=== PATIENT | female | born 1945 | race Caucasian/White ===

== ENCOUNTER 2023-05-27 06:08 | Inpatient (IN) ==
--- NOTE | 2023-04-29 13:00 | PAT Medication Instructions ---
Medication Instructions Date of Service April 29, 2023 Home Medications Ra Injection 1 dose IM UD amlodipine 5 mg tablet 5 mg PO QAM atorvastatin 10 mg tablet 10 mg PO QAM calcium carbonate 500 mg-vitamin D3 3.125 mcg (125 unit) tablet 1 tab PO BID lisinopril 40 mg tablet 40 mg PO QAM multivitamin 1 tab PO QAM ASK your prescriber and surgeon Ra Injection 1 dose IM UD DO NOT take the morning of surgery calcium carbonate 500 mg-vitamin D3 3.125 mcg (125 unit) tablet 1 tab PO BID lisinopril 40 mg tablet 40 mg PO QAM multivitamin 1 tab PO QAM Take morning of surgery With a small sip of water, OTHERWISE NOTHING TO EAT OR DRINK AFTER MIDNIGHT: amlodipine 5 mg tablet 5 mg PO QAM atorvastatin 10 mg tablet 10 mg PO QAM Other Notes If you have any questions please call us at [phone] or [phone] or [phone] or [phone]
--- NOTE | 2023-05-04 13:40 | Anesthesiology Consultation ---
Date of Service May 04, 2023 Assessment & Plan (1) Encounter for pre-operative examination: - awaiting surgeon ordered medical clearance, [facility]. Chart Review Chart Review: Pending: Refer to Additional Notes / Consult section and Patient seen in Pre Admission Testing Teaching & Discussion Pre-Anesthesia Teaching/Discussion Notes: Instructed NPO after midnight before surgery, except medications with 15 cc of water. Medication instructions provided according to the PAT guidelines. History Surgery Operation Date: 05/27/23 07:45 Proposed Procedures p L2-L5 Decompression and Fusion, Spinal Cord Monitoring - Sujit Mansfield DO Height/Weight Height: 5 ft 1 in Weight: 63.9 kg Allergies Allergy/AdvReac Type Severity Reaction Status Date / Time shellfish derived Allergy Severe Anaphylaxis Verified 04/29/23 11:51 aspirin Allergy Intermediate Hives Verified 04/29/23 11:51 Penicillins Allergy Intermediate Hives Verified 04/29/23 11:51 Medications Home Medications Medication Instructions Recorded Confirmed Last Taken Ra Injection 1 dose IM UD 04/29/23 04/29/23 Unknown amlodipine 5 mg tablet 5 mg PO QAM 04/29/23 04/29/23 Unknown atorvastatin 10 mg tablet 10 mg PO QAM 04/29/23 04/29/23 Unknown calcium carbonate 500 mg-vitamin 1 tab PO BID 04/29/23 04/29/23 Unknown D3 3.125 mcg (125 unit) tablet lisinopril 40 mg tablet 40 mg PO QAM 04/29/23 04/29/23 Unknown multivitamin 1 tab PO QAM 04/29/23 04/29/23 Unknown Past Medical History Medical History (Updated 05/04/23 @ 13:52 by Bernice Black PA-C) Poor historian Rheumatoid arthritis HX: breast cancer 2007 > radiation and sx-pt denies limb restriction Cardiac murmur "slight" no significant valvular abnormalities on 07/2021 echo Hypertension controlled, stable per pt Hyperlipidemia Patient denies h/o stroke, seizures, heart attack, heart failure, DM, blood clots/DVTs or blood transfusions. Exercise / Class Metabolic Activity II 4-5 Yardwork/Stairs/Walk up hill (denies chest discomfort or shortness of breath with 1 FOS) Past Surgical History Surgical History History of lumbar surgery not fusion History of tooth extraction Hx of lymph node excision left arm during lumpectomy Hx of lumpectomy left > 2007 History of colonoscopy Past Anesthesia History No Hx of Anesthesia Complications and No Family Hx of Anesthesia Complications History of PONV No Hx of PONV and No Hx of Motion Sickness Social History Smoking Status: Former smoker Do You Dip or Chew Tobacco: No Smoking End Date: 2 yrs ago Hx Alcohol Use: Yes alcohol intake frequency: holidays/special occasions only Hx Substance Use: No substance use type: does not use Review of Systems Snoring, denies witnessed apneas. Patient denies chest pain, shortness of breath, dyspnea on exertion, reflux, fever, chills, cough, wheezing, or palpitations. Physical Exam Vital Signs Vitals BP 115/74 P 64 TEMP 98.5 SP02 95% on RA RESP 18 Physical Patient resting comfortably in chair in no acute distress, alert and oriented, responding appropriately throughout visit Full cervical extension range of motion without pain TMD < 3 finger breadths Mallampati Score 2 Dentition: full upper plate and lower partial; denies chipped or loose teeth, caps/crowns, implants or bridges Lungs: normal respiratory effort. Good air movement, clear throughout to auscultation, no adventitious breath sounds Cardiac: regular rate and rhythm, 2/6 systolic murmur Carotid arteries: negative bruit bilat Lab Results Anesthesia Preop Results Results Anesthesia Widget: WBC 6.96 K/ul (4.8-10.8) 05/04/23 Hgb 12.2 g/dl (12.0-16.0) 05/04/23 Hct 35.7 % (37.0-47.0) L 05/04/23 Plt 364 K/uL (130-400) 05/04/23 PT 10.6 Seconds (9.0-12.0) 05/04/23 PTT 27.8 Seconds (21.0-31.0) 05/04/23 INR 1.0 (0.9-1.1) 05/04/23 Urine Color Yellow 05/04/23 Urine Appearance Clear (Clear) 05/04/23 Urine pH 5.5 (4.5-7.5) 05/04/23 Urine Specific Eldridge 1.021 (1.000-1.030) 05/04/23 Urine Protein Negative (Negative) 05/04/23 Urine Glucose (UA) Negative (Negative) 05/04/23 Urine Ketones Negative (Negative) 05/04/23 Urine Blood Negative (Negative) 05/04/23 Urine Nitrite Negative (Negative) 05/04/23 Urine Bilirubin Negative (Negative) 05/04/23 Urine Urobilinogen Negative (Negative) 05/04/23 Urine Leukocyte Esterase Negative (Negative) 05/04/23 Blood Type O Positive 05/04/23 Antibody Screen NEGATIVE 05/04/23 Testing Laboratory Results 04/12/2023 SODIUM: 139 POTASSIUM: 5.1 CHLORIDE: 107 CO2: 23 BUN: 14 CREATININE: 0.9 GLUCOSE: 95 Electrocardiogram Date: 05/04/23 NSR, rate 61 bpm Left axis deviation [id number] Chest X-Ray Date: 05/04/23 No acute chest disease. Echocardiogram Date: 07/16/21 EF 63% Normal LV wall motion Grade I diastolic dysfunction No significant valvular abnormalities Cervical Spine Date: 05/04/23 x-ray 1. No acute bony abnormality is seen involving the cervical spine. 2. Osteopenia and spondylotic change as above. 3. No bony subluxation is seen on the flexion/extension views.
[~2023-05-27 06:08] MED LIST: ACETAMINOPHEN 500 MG TAB PO SCH; ALLERGY Noted to ORDERED Medication SCH; GABAPENTIN 300 MG CAP PO SCH; LR 15ML/HR IV SCH; LR 60ML/HR IV SCH; VANCOMYCIN HCL 1,000 MG/270 ML BAG IV SCH
[2023-05-27] MEDS ORDERED: ATROPINE SULFATE 0.1 MG/ML 10ML SYR IV PRN (06:58)
[2023-05-27] MEDS ORDERED: ceFAZolin 330 MG/ML 1 GM VIAL ONE (06:58)
[2023-05-27] MEDS ORDERED: PROMETHAZINE HCL 6.25 MG in SODIUM CHLORIDE 0.9% 50 ML IV PRN (06:58)
[2023-05-27] MEDS ORDERED: EPINEPHrine INJ 1 MG/ML AMP ONE (06:59)
[2023-05-27] MEDS ORDERED: BUPIVACAINE 0.25% PF 30 ML VIAL ONE (06:59)
[2023-05-27] MEDS ORDERED: HYDROmorphone INJ 2 MG/ML SYR/VIAL ONE (07:23)
[2023-05-27] MEDS ORDERED: SODIUM CHLORIDE 0.9% PF INJ 10 ML VIAL ONE (07:23)
[2023-05-27] MEDS ORDERED: ROCURONIUM BROMIDE 10 MG/ML 5 ML VIAL IV ONE (07:26)
[2023-05-27] MEDS ORDERED: diphenhydrAMINE 50 MG/ML VIAL ONE (07:26)
[2023-05-27] MEDS ORDERED: LIDOCAINE 2% 2 ML VIAL/AMP(20MG/ML) INFIL ONE (07:26)
[2023-05-27] MEDS ORDERED: PROPOFOL IV EMULSION 10 MG/ML 20 ML VIAL IV ONE (07:26)
[2023-05-27] MEDS ORDERED: ONDANSETRON INJ 2 MG/ML 2 ML VIAL ONE (07:26)
[2023-05-27] MEDS ORDERED: DEXAMETHASONE SOD INJ 4 MG/ML VIAL ONE (07:26)
[2023-05-27] MEDS ORDERED: FAMOTIDINE/PF 20 MG/2 ML VIAL IV ONE (07:28)
[2023-05-27] MEDS ORDERED: BUPIVACAINE/EPINEPHRINE 0.25% 1:200,000 30 ML VIAL ONE (07:39)
--- NOTE | 2023-05-27 07:48 | History & Physical Report ---
Date of Service May 27, 2023 Assessment & Plan (1) Neurogenic claudication due to lumbar spinal stenosis: Plan: L2-L5 decompression and fusion History of Present Illness Chief Complaint: Back and leg pain Primary Care Provider: Krissy Lama PA-C This is a 78-year-old female who presents with chronic persistent back and leg pain after failing course of nonoperative care is here for surgical invention. Allergies Allergy/AdvReac Type Severity Reaction Status Date / Time shellfish derived Allergy Severe Anaphylaxis Verified 04/29/23 11:51 aspirin Allergy Intermediate Hives Verified 04/29/23 11:51 Penicillins Allergy Intermediate Hives Verified 04/29/23 11:51 Home Medications Medication Instructions Recorded Confirmed Type Ra Injection 1 dose IM UD 04/29/23 05/27/23 History amlodipine 5 mg tablet 5 mg PO QAM 04/29/23 05/27/23 History atorvastatin 10 mg tablet 10 mg PO QAM 04/29/23 05/27/23 History calcium carbonate 500 mg-vitamin 1 tab PO BID 04/29/23 05/27/23 History D3 3.125 mcg (125 unit) tablet lisinopril 40 mg tablet 40 mg PO QAM 04/29/23 05/27/23 History multivitamin 1 tab PO QAM 04/29/23 05/27/23 History Past Med/Surg History Medical History (Updated 05/27/23 @ 07:48 by Sujit Mansfield DO) Poor historian Rheumatoid arthritis HX: breast cancer 2007 > radiation and sx-pt denies limb restriction Cardiac murmur "slight" no significant valvular abnormalities on 07/2021 echo Hypertension controlled, stable per pt Hyperlipidemia Surgical History History of lumbar surgery not fusion History of tooth extraction Hx of lymph node excision left arm during lumpectomy Hx of lumpectomy left > 2007 History of colonoscopy Social History Smoking Status: Former smoker Smoking End Date: 2 yrs ago; Second Hand Exposure: No; Do You Dip or Chew Tobacco: No; Tobacco Cessation Education Requested by Patient: No Hx Alcohol Use: Yes Hx Substance Use: No Preferred Language: Albanian Communication Ability: Effective Auto Servicer Required: No Beliefs That Will Affect Care: None Current Living Situation: Spouse Other Information That Helps Us Care for You: No Feels Safe at Home: Yes Safety Concerns: Feels Safe At This Time Assistive Devices: Denture - Upper, Denture - Lower, Glasses and Hearing Aid - Bilateral Physical Exam Physical Exam: Patient is alert and oriented Heart regular rhythm Lungs clear Results & Data Results & Data Vital Signs (Past 12 Hours) Vital Signs Temp Pulse Resp BP Pulse Ox O2 Del Method 05/27/23 06:49 37.3 C 55 L 18 152/77 H 95 Room Air
--- NOTE | 2023-05-27 07:48 | History & Physical Bridge Note ---
Date of Service May 27, 2023 History & Physical Bridge Note I have examined the patient, reviewed the History & Physical and in the interval since the performance of the History & Physical I have noted the following changes of clinical significance: no changes noted
[2023-05-27] MEDS ORDERED: PHENYLEPHRINE 100MCG/ML 10ML SYR IV ONE (08:07)
[2023-05-27] MEDS ORDERED: ePHEDrine sulfate 50 MG/5 ML SYR ONE (08:07)
[2023-05-27] MEDS ORDERED: SUGAMMADEX SODIUM 200 MG/2 ML VIAL IV ONE (08:19)
[2023-05-27] MEDS ORDERED: GLYCOPYRROLATE 0.2 MG/ML VIAL ONE (08:19)
[2023-05-27] MEDS ORDERED: FLOSEAL HEMOSTATIC MATRIX 10ML TOP ONE (08:46)
--- NOTE | 2023-05-27 09:52 | Operative Report ---
Post Operative Report Pre & Post Diagnosis Operation Date: 05/27/23 07:45 Pre-Op Diagnosis: Lumbar Region Spinal Stenosis with Neurogenic Claudication Post-Op Diagnosis: Lumbar Region Spinal Stenosis with Neurogenic Claudication I identified the patient and participated in the time-out.: Yes Procedure Operation Date: 05/27/23 07:45 Actual Procedures #1 lumbar decompression bilaterally facetectomies and foraminotomies L1-L2, L2-3 and L3-L4. #2 posterior spinal fusion L2-L4. #3 placed posterior instrumentation L2-L4. #4 interbody fusion L2-L3 L3-L4. #5 placement of Spira limb by 26 mm L to L3 and 12 x 26 mm at L3-L4. #6 placement locally harvested morselized autograft in the posterior gutters. #7 placement of I factor and interbody space and infuse collagen sponge, mass graft in the posterior gutters. Surgeon Sujit Mansfield, Packer Inspector Sukhdev Snow Estimated Blood Loss 50 Findings Consistent with Post-Op Diagnosis Specimens None Indications This is a 78-year-old female presents above-mentioned diagnosis and failing since course of nonoperative care is here for surgical invention. Description of Procedure Patient was met with identified informed consent obtained. Patient was then taken to the operative suite underwent patient placed in a prone position on the [place] table top Fantasma frame. All bony promises well-padded eyes inspected to ensure no external pressure spinal (point lumbar spine was prepped and draped in a sterile fashion. Sharp dissection with assistance of Bovie cautery form down to and exposing the lamina transverse processes of L2-L3-L4 bilaterally. Rodriguez cephalad fashion complete laminectomy L3 L2 partial laminectomy L1 was performed including bilateral medial facetectomies and foraminotomies addressing severe spinal stenosis. Pedicle screws were then placed in L2-L3-L4 bilaterally with assistance of fluoroscopy and appropriately sized luisa placed. By way of a trans foraminal approach and right a complete discectomy of l 3 L4 was performed and endplates curetted to subcortical bleeding bone. A 12 x 26 mm Spira cage with I factor was then tapped in position. Then proceeded to L2-L3 and again by way the transforaminal approach on the right complete discectomy performed endplates guided to subcortical bleeding bone and 11 x 26 mm Spira cage with I factor tapped the position. The rods then locked in final position bilaterally. The transverse processes of L2-L3-L4 burred to subcortical bleeding bone. Infuse collagen sponge, master graft and local autograft placed in the posterior gutters. 15 round CLAUDIO drain inserted. The incision was then closed with 1 Vicryl to fascia 2-0 Vicryl subcutaneously and 4 Monocryl for final skin closure. Steri-Strips sterile dressing placed. Patient waken taken PACU stable condition. Please note spinal cord monitoring visualized at the procedure no changes noted. Lastly Sukhdev Snow was present at the entire surgery and all the patient positioning complex portions of the surgery and final skin closure. I attest to the content of the Intraoperative Record and any orders documented therein. Any exceptions are noted below.
[2023-05-27] MEDS: HYDROmorphone INJ 1 MG/ML SYRINGE IV PRN ×2 (10:19→10:24)
--- NOTE | 2023-05-27 10:52 | Fluoroscopy Report ---
FL lumbar spine 2-3V CLINICAL HISTORY: L2-L5 DECOMPRESSION AND FUSION COMPARISON STUDY: None. FLUOROSCOPY TIME: 25 seconds FLUOROSCOPY IMAGES: 2 Ka,r: 11.4 mGy FINDINGS: Posterior decompression fusion from L2 through L4 with pedicle screws and rods. The hardwar e appears intact. Disc spacers are in place. IMPRESSION: Fluoroscopic assistance as above. ACT 112: Negative or not required by law. Electronically signed by: Efrain Steel M.D. 05/27/2023 10:50 AM
[2023-05-27] MEDS ORDERED: traMADol HCL 50 MG TABLET PO PRN (11:09)
[2023-05-27] MEDS ORDERED: ALUMINUM/MAGNESIUM SUSP 30 ML UDC PO PRN (11:09)
[2023-05-27] MEDS ORDERED: hydrOXYzine HCl 25 MG TAB PO PRN (11:09)
[2023-05-27] MEDS ORDERED: bisacodyL 10 MG SUPP PR PRN (11:09)
[2023-05-27] MEDS ORDERED: HYDROmorphone INJ 0.5 MG/0.5 ML SYR IV PRN (11:09)
[2023-05-27] MEDS ORDERED: MAGNESIUM HYDROXIDE SUSP 30 ML UDC PO PRN (11:09)
[2023-05-27] MEDS ORDERED: HYDROmorphone INJ 1 MG/ML SYRINGE IV PRN (11:09)
[2023-05-27] MEDS ORDERED: PROMETHAZINE HCL 12.5 MG in SODIUM CHLORIDE 0.9% 50 ML IV PRN (11:09)
[2023-05-27] MEDS ORDERED: ONDANSETRON 4 MG OD TAB PO PRN (11:09)
[2023-05-27] MEDS ORDERED: ACETAMINOPHEN 1,000 MG/100 ML VIAL IV PRN (11:09)
[2023-05-27] MEDS ORDERED: LORazepam 0.5 MG in SYRINGE 0.25 ML IV PRN (11:09)
[2023-05-27] MEDS ORDERED: METOCLOPRAMIDE HCL INJ 5 MG/ML 2 ML VIAL IV PRN (11:09)
[2023-05-27] MEDS ORDERED: SOD PHOSPHATE/SOD BIPHOSPHATE ENEMA 132 ML BTL PR PRN (11:09)
[2023-05-27] MEDS ORDERED: diphenhydrAMINE Capsule 25 MG CAP PO PRN (11:09)
[2023-05-27] MEDS ORDERED: ACETAMINOPHEN 500 MG TAB PO PRN (11:09)
[2023-05-27] MEDS ORDERED: FAMOTIDINE 20 MG TAB PO PRN (11:09)
[2023-05-27] MEDS ORDERED: LORazepam 0.5 MG TAB PO PRN (11:09)
[2023-05-27] MEDS ORDERED: oxyCODONE HCL IR 5 MG TAB (IMMEDIATE RELEASE) PO PRN (11:09)
[2023-05-27] MEDS ORDERED: DO NOT ADMINISTER FLU VACCINE PRN (11:09)
[2023-05-27] MEDS ORDERED: DO NOT ADMINISTER PNEUMOCOCCAL VACCINE PRN (11:09)
[2023-05-27] MEDS ORDERED: NALOXONE HCL 0.4 MG/1 ML VIAL/CARP IV PRN (11:09)
[2023-05-27] MEDS ORDERED: ONDANSETRON INJ 2 MG/ML 2 ML VIAL IV PRN (11:09)
[2023-05-27] MEDS: LACTATED RINGER'S 1,000 ML IV SCH (11:27)
--- NOTE | 2023-05-27 11:27 | Anesthesiology Progress Note ---
Date of Service May 27, 2023 Anesthesia Post Procedure Vital Signs Vital Signs: Temp Pulse Pulse Resp BP BP Pulse Ox 05/27/23 11:11 36.5 C 75 16 154/65 H 97 05/27/23 10:50 70 14 139/76 98 05/27/23 10:40 36.4 C L 71 12 142/73 H 97 05/27/23 10:30 70 12 152/67 H 99 05/27/23 10:20 67 12 145/67 H 100 05/27/23 10:11 36.9 C 80 12 104/86 100 05/27/23 06:49 37.3 C 55 L 18 152/77 H 95 O2 Del Method O2 Flow Rate 05/27/23 11:11 Nasal Cannula 2 05/27/23 10:50 Nasal Cannula 2 05/27/23 10:40 Nasal Cannula 2 05/27/23 10:30 Oxymask 4 05/27/23 10:20 Oxymask 4 05/27/23 10:11 Oxymask 6 05/27/23 06:49 Room Air Pain Intensity Back: Pain Intensity: 4 Transfer of Care Handoff Completed per policy Notes Mental Status: alert / awake / arousable Patient Amnestic to Procedure: Yes Nausea / Vomiting: adequately controlled Pain: adequately controlled Airway Patency, RR, SpO2: stable & adequate BP & HR: stable & adequate Hydration State: stable & adequate Anesthetic Complications: no major complications apparent
--- NOTE | 2023-05-27 12:52 | Consultation ---
Date of Consultation May 27, 2023 Assessment & Plan (1) Status post lumbar surgery: (2) Neurogenic claudication due to lumbar spinal stenosis: Post op day# 0 S/P L2-L4 decompression fusion by Dr Shyla RAMIREZ # 50 mL -pain management per ortho -wound management per ortho -PT/OT as appropriate -DVT prophylaxis per ortho -incentive spirometry -monitor H&H for acute blood loss anemia, pre-op Hgb: 12 (3) Hypertension: Stable -Continue amlodipine, lisinopril (4) Hyperlipidemia: - Continue atorvastatin (5) Osteoporosis: - Receives Prolia, last was 03/2023 DVT Prophylaxis -SCDs Disposition Per primary service Follows with Krissy Lama PA-C for routine care Pt was seen and care coordinated with Dr Little. See addendum Thank you for this consultation. We will follow the patient with you during their hospital stay. You can reach a member of the [facility] Hospitalist Team 03/01 via [employer] Supervising Physician Co-Signing Physician Notes Care coordinated with Caroline Chatterjee PA-C. Agree with above note. Patient seen and examined. Please refer to her notes for full details. Vital signs reviewed. Physical exam: General exam: Alert and oriented. Not in acute distress. CVS: S1 and S2 heard, regular rate and rhythm, no murmurs. RS: Clear to auscultation, no wheezing or crackles. ABD: Soft, bowel sounds present, nontender, no distention. 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 EXT: No edema, no erythema. Musculoskeletal s/p back surgery. Dressing intact Labs: Reviewed. Assessment and plan: S/p back surgery doing fine. management as per ortho. HTN continue home meds will monitor. Other diagnosis and plan of care as per Caroline Chatterjee PA-C. Xander caceres MD. History of Present Illness Requesting Physician: Dr. Mansfield Reason for Consultation: Postop medical management Attending Physician: Sujit Mansfield DO History of Present Illness Patient is 78-year-old female with PMH HTN, dyslipidemia, DDD, osteoporosis seen in medical consultation s/p L2-L4 decompression and fusion today by Dr. Mansfield. Postop patient reports low back pain is controlled. States feels sleepy. Denies nausea, vomiting, chest pain, shortness of breath, dizziness, fever/chills, diarrhea, ANDREW, palpitations, cough, sore throat, rhinorrhea, abdominal pain, paresthesias, weakness, extremity edema, rashes, urinary symptoms. Allergies Allergy/AdvReac Type Severity Reaction Status Date / Time shellfish derived Allergy Severe Anaphylaxis Verified 04/29/23 11:51 aspirin Allergy Intermediate Hives Verified 04/29/23 11:51 Penicillins Allergy Intermediate Hives Verified 04/29/23 11:51 Home Medications Medication Instructions Recorded Confirmed Type amlodipine 5 mg tablet 5 mg PO QAM 04/29/23 05/27/23 History atorvastatin 10 mg tablet 10 mg PO QAM 04/29/23 05/27/23 History calcium carbonate 500 mg-vitamin 1 tab PO BID 04/29/23 05/27/23 History D3 3.125 mcg (125 unit) tablet lisinopril 40 mg tablet 40 mg PO QAM 04/29/23 05/27/23 History multivitamin 1 tab PO QAM 04/29/23 05/27/23 History Patient History Medical History (Updated 05/27/23 @ 20:06 by Caroline Chatterjee PA-C) Osteoporosis Poor historian Rheumatoid arthritis HX: breast cancer 2007 > radiation and sx-pt denies limb restriction Cardiac murmur "slight" no significant valvular abnormalities on 07/2021 echo Hypertension controlled, stable per pt Hyperlipidemia Surgical History (Updated 05/27/23 @ 20:06 by Caroline Chatterjee PA-C) History of lumbar surgery not fusion History of tooth extraction Hx of lymph node excision left arm during lumpectomy Hx of lumpectomy left > 2007 History of colonoscopy Social History Smoking Status: Former smoker Smoking End Date: 2 yrs ago; Second Hand Exposure: No; Do You Dip or Chew Tobacco: No; Tobacco Cessation Education Requested by Patient: No Hx Alcohol Use: Yes Hx Substance Use: No Preferred Language: Setswana Communication Ability: Effective Shoemaking Finisher Required: No Beliefs That Will Affect Care: None Current Living Situation: Spouse Other Information That Helps Us Care for You: No Feels Safe at Home: Yes Safety Concerns: Feels Safe At This Time Assistive Devices: Denture - Upper, Denture - Lower, Glasses and Hearing Aid - Bilateral Review of Systems Review of Systems: All systems reviewed & are unremarkable except as noted in HPI & below Physical Exam Physical Exam: General: no distress, WDWN Head: normocephalic, atraumatic Eyes: conjunctiva non-injected, anicteric ENT: normal inspection external ears, nose, mucous membranes moist Neck: supple, trachea midline Lungs: clear, no respiratory distress, no wheezing/rhonchi/rales CV: RRR, no murmur, no pretibial edema Abd: normal BS, soft, non-tender Back: Surgical dressing in place, + CLAUDIO drain in place with serosanguineous drainage Ext: no cyanosis, no calf tenderness, bilateral pedal pushes and pulls intact, sensation to light touch intact Neuro: A&O x 3, no focal deficits noted, normal affect Skin: warm, dry Results & Data Vital Signs (Past 12 Hours) Vital Signs Temp Pulse Pulse Resp BP BP Pulse Ox 05/27/23 12:04 36.4 C L 65 15 131/70 98 05/27/23 11:39 36.3 C L 78 16 145/73 H 98 05/27/23 11:11 36.5 C 75 16 154/65 H 97 05/27/23 10:50 70 14 139/76 98 05/27/23 10:40 36.4 C L 71 12 142/73 H 97 05/27/23 10:30 70 12 152/67 H 99 05/27/23 10:20 67 12 145/67 H 100 05/27/23 10:11 36.9 C 80 12 104/86 100 05/27/23 06:49 37.3 C 55 L 18 152/77 H 95 O2 Del Method O2 Flow Rate 05/27/23 12:04 Nasal Cannula 2 05/27/23 11:39 Nasal Cannula 2 05/27/23 11:11 Nasal Cannula 2 05/27/23 10:50 Nasal Cannula 2 05/27/23 10:40 Nasal Cannula 2 05/27/23 10:30 Oxymask 4 05/27/23 10:20 Oxymask 4 05/27/23 10:11 Oxymask 6 05/27/23 06:49 Room Air
--- OUTSIDE RECORDS SUMMARY | 2023-05-27 13:07 | External Medical Summary | Summary of Care ---
Author Name Unknown Organization [facility] Address [address] [facility] [address] Phone [phone] Care Team Providers Care Pharmacognosist Name Role Phone Krissy Lama PA-C Primary Care Provider Reason for Visit * Reason Comments pre-op exam Pt is here for a pre -op exam for surgery on 05/[address] Mansfield for lower back surgery Encounter Details Date Type Department Care Team (Late st Contact Info) Description 05/06/2023 10:00 AM EST Office Visit [facility] [address] [place] [address] Jeuss Jimenez CRNP [address] [place] [address] Preop examination* Allergies Active Allergy Reactions Criticality Noted Date Comments Aspirin 01/07/2012 hemetemesis Penicillin G Anaphylaxis,Hives High 01/07/2012 Shellfish Allergy Anaphylaxis,Hives High 01/07/2012 documented as of this encounter (statuses as of 05/09/2023) Medications Medication Sig Dispensed Refills Start Date End Date Status CALCIUM 600+D 600-200 MG-UNIT PO TABS Take by mouth 1 Tablet 2 times a day . 0 Active MULTI-VITAMIN PO TABS Take 1 Tablet by mouth in the morning. 0 Active Atorvastatin Calcium 10 MG Oral Tablet (Lipitor)Indication s:Dyslipidemia, goal LDL below 100 TAKE ONE TABLET BY MOUTH EVERY MORNING 90 Tablet 3 09/15/2022 09/15/2023 Active amLODIPine Besylate 5 MG Oral Tablet (Norvasc)Indication s:Essential hypertension with goal blood pressure less than 140/90 TAKE ONE TABLET BY MOUTH EVERY MORNING 90 Tablet 3 09/15/2022 09/15/2023 Active Lisinopril 40 MG Oral TabletIndications:E ssential hypertension with goal blood pressure less than 140/90 TAKE ONE TABLET BY MOUTH EVERY DAY 90 Tablet 3 09/07/2022 09/07/2023 Active Baclofen 10 MG Oral Tablet (Lioresal)Indicatio ns:DDD (degenerative disc disease), lumbar Take by mouth 1 Tablet 2 times a day as needed for Muscle spasms. 60 Tablet 2 11/12/2021 05/06/2023 Discontinued (Medication List Clean Up) Meloxicam 15 MG Oral TabletIndications:D DD (degenerative disc disease), lumbar Take 1 Tablet by mouth in the morning. for pain.. 30 Tablet 5 06/24/2022 05/06/2023 Discontinued (Medication List Clean Up) documented as of this encounter (statuses as of 05/09/2023) Active Problems Problem Noted Date Diagnosed Date DDD (degenerative disc disease), lumbar 11/13/19 22 Dyslipidemia, goal LDL below 100 11/11/2017 Senile osteoporosis 04/16/2014 History of cancer of left breast 04/16/2014 Essential hypertension with goal blood pressure less than 140/90 04/16/2014 documented as of this encounter (statuses as of 05/09/2023) Resolved Problems Problem Noted Date Diagnosed Date Resolved Date Dyslipidemia, goal LDL below 100 06/24/2022 06/24/2022 Chronic kidney disease, stage 3a 10/21/2020 06/24/2022 Overview: Per CKD protocol Hypertensive kidney disease with stage 3a chronic kidney disease 04/21/2020 06/24/2022 Overview: Per CKD protocol - Combination code Hypertensive kidney disease with chronic kidney disease stage III 11/08/2019 04/24/2020 Overview: Combination code Kidney disease, chronic, sta ge III (GFR 30-59 ml/min) 12/18/2018 12/27/2019 Overview: Per CKD protocol Tobacco use disorder 04/29/2015 020 Other and unspecified hyperlipidemia 04/16/2014 04/29/2015 Malignant neoplasm of breast (female), unspecified site 04/16/2014 11/02/2016 documented as of this encounter (statuses as of 05/09/2023) Immunizations Name Administration Dates Next Due COVID-19 mRNA, LNP-s, No Pre serve, 2-Dose Series (YouNoodle) 06/03/2021,09/27/2020,09/06/2020 Pneumococcal Conjugate Vacc, 13 Valent (Prevnar) 10/28/2015 Pneumococcal Polysaccharide PPV23 (Pneumovax) 04/10/2013 SEASONAL INFLUENZA, PF, 6 M & Above, IM , (FLULAVAL or FLUZONE) 05/10/2017 Seasonal Influenza, Quadriva lent Hd (Fluzone Hd) 03/28/2023,06/24/2022,06/11/2021 Seasonal Influenza, Quadriva lent, No Preserve, IM 05/04/2016,04/29/2015 Seasonal Influenza, Split, I IV3, With Preserve, Inj 04/22/2014,04/10/2013,03/15/2012,06/08 Seasonal Influenza, Trivalen t, Adjuvanted, 65+ yrs 03/22/2018 TDAP (age 11 and older)(Adacel) 12/02/2008 Varicella Zoster Vaccine (Adult) 10/22/2014 documented as of this encounter Social History Tobacco Use Types Packs/Day Years Used Date Smoking Tobacco: Former Cigarettes 0.5 0 06/13/1981 - 01/23/2016 Smokeless Tobacco: Never Tobacco Cessation:Counseling Given: Not Answered Alcohol Use Standard Drinks/Week Comments Yes 0 (1 standard drink = 0.6 oz pur e alcohol) occasionally PHQ-2 Answer Date Recorded PHQ Adult Total Score 0 06/24/2022 Hunger Vital Sign Answer Date Recorded Within the past 12 months, y ou worried that your food would run out before you got the money to buy more. Never true 12/28/19 23 Within the past 12 months, t he food you bought just didn't last and you didn't have money to get more. Never true 12/27/2022 Sex and Gender Information Value Date Recorded Sex Assigned at Female 11/20/2018 2:21 PM EDT Gender Identity Female 11/20/2018 2:21 PM EDT Sexual Orientation Straight 11/20/2018 2: 21 PM EDT Job Start Date Occupation Industry Not on file Not on file Not on file documented as of this encounter Last Filed Vital Signs Vital Sign Reading Time Taken Comments Blood Pressure 124/68 05/06/2023 9:57 AM EST Pulse 64 05/06/2023 9:57 AM EST Temperature 36.7 C (98.1 F) 05/06/2023 9:57 AM ES T Respiratory Rate 16 05/06/2023 9:57 AM EST Oxygen Saturation 98% 05/06/2023 9:57 AM EST Inhaled Oxygen Concentration - - Weight 64 kg (141 lb) 05/06/2023 9:57 AM EST Height - - Body Mass Index 26.66 04/01/2023 9:18 AM EDT documented in this encounter Progress Notes * Jesus Jimenez CRNP - 05/06/2023 10:16 AM EST Images from the original note were not included. Pre-Operative Medical Evaluation The patient is a 77-year-old white female with a history of essential hypertension, dyslipidemia, and degenerative disc disease who presents for a preoperative physical examination. The patient offers no specific complaints today. Procedure Information Type of Surgery: Low back surgery Referring Physician / Surgeon: Dr. Mansfield Date of procedure: 2023 Brief History of Present Illness: Pt has been having back issues for four years. Been getting progressively worse. Review of Systems: Constitutional ROS: No change in weight, No fatigue, and No fevers, sweats, or chills Eye ROS: No recent significant change in vision, No eye pain, redness, discharge, No diplopia, No h/o cataracts, and No h/o glaucoma Ear ROS: No ear pain, No drainage, No tinnitus or vertigo, and No recent change in hearing Mouth/Throat ROS: No bleeding gums, No thrush, or No sore throat Pulmonary ROS: No cough, sputum, or hemoptysis, No wheezing, No rales, No shortness of breath, and No recent change in breathing Cardiovascular ROS: No chest pain, No shortness of breath, No dyspnea on exertion, No orthopnea, Noparoxysmal nocturnal dyspnea, No edema, No palpitations, and No syncope Gastrointestinal ROS: No abdominal pain, No change in bowel habits, No significant heartburn, No significant change in appetite, No nausea, vomiting, diarrhea, or constipation, No hematemesis, No blood in stools or black tarry stools, No abdominal bloating or early satiety, and No dysphagia Genito-Urinary Female ROS: No dysuria, No frequency, No incontinence, and No urgency Musculoskeletal/Extremities ROS: No pain, redness or swelling on the joints. Low back pain Skin/Integumentary ROS: No edema, No rash, and No itching Neurologic ROS: Normal balance, No headaches, No seizures, and No weakness Endocrine ROS: No heat intolerance, No cold intolerance, No thyroid trouble, and No excessive thirst or urination Psychiatric ROS: No depression, No anxiety, and No psychosis Medical History Problem List: Dyslipidemia, goal LDL below 100 (06/24/2022) DDD (degenerative disc disease), lumbar (11/12/2021) Chronic kidney disease, stage 3a ([facility]) (10/21/2020) Hypertensive kidney disease with stage 3a chronic kidney disease ([facility]) (04/21/2020) Hypertensive kidney disease with chronic kidney disease stage III ([facility]) (11/08/2019) Kidney disease, chronic, stage III (GFR 30-59 ml/min) ([facility]) (2018) Dyslipidemia, goal LDL below 100 (11/11/2017) Tobacco use disorder (04/29/2015) Senile osteoporosis (04/16/2014) History of cancer of left breast (04/16/2014) Essential hypertension with goal blood pressure less than 140/90 (09/2013) Other and unspecified hyperlipidemia (04/16/2014) Malignant neoplasm of breast (female), unspecified site (04/16/2014) Current Medications amLODIPine Besylate 5 MG Oral Tablet (Norvasc), TAKE ONE TABLET BY MOUTH EVERY MORNING Atorvastatin Calcium 10 MG Oral Tablet (Lipitor), TAKE ONE TABLET BY MOUTH EVERY MORNING Lisinopril 40 MG Oral Tablet, TAKE ONE TABLET BY MOUTH EVERY DAY CALCIUM 600+D 600-200 MG-UNIT PO TABS, 1 Tablet, Oral, BID(AM/PM) MULTI-VITAMIN PO TABS, 1 Tablet, Oral, Daily(AM) Allergies: Penicillin g, Shellfish allergy, and Aspirin Past Medical History: has a past medical history of Breast cancer (HCC), Colon polyps, History of chicken pox, History ofGerman measles, History of measles, History of mumps, HTN, goal below 140/90 (04/16/2014), and Osteoporosis. Past Surgical History: has a past surgical history that includes Colonoscopy, Diagnostic (Rectum) (01/07/2012); Hemorrhoidectomy, simple, 1 column; lap;repair recurrent hernia; information (08/2008); information (10/2008);mastectomy, partial (Left, 2008); breast lesion,other,excision (Left, 2008); IR Vertebral Augmentation Thoracic (N/A, 06/15/2021); IR Vertebral Augmentation Each additional (N/A, 06/15/2021); and Inject Dx/Ther Substance Interlaminar Lumbar/Sacral W Image Guide (N/A, 04/01/2023). Social History: reports that she quit smoking about 7 years ago. Her smoking use included cigarettes. She started smoking about 41 years ago. She smoked an average of .5 packs per day. She has never used smokeless tobacco. She reports current alcohol use. She reports that she does not use drugs. Family History: family history includes Breast Cancer in her grandmother (paternal); Cancer in her sister; Diabetesin her mother; Heart Disorder in her father; Hypertension in her brother, mother, and sister; Stroke in her brother. Anesthesia History Type of Anesthesia: General Endotracheal Anesthesia reaction: No History of surgical complications: none Personal history of venous thromboembolic disease: none Physical Exam Vitals: 05/06/23 0957 Temp: 36.7 C (98.1 F) Pulse: 64 Resp: 16 SpO2: 98% BP: 124/68 General: alert, healthy, and no distress Head: Normocephalic, No masses, lesions, tenderness or abnormalities Eye Exam: PERRLA, extraocular movements intact, conjunctiva are pink and non- injected, sclera clear Ears: External ears normal, Canals clear, TM's Normal Oropharynx: no exudate, no erythema, lips, buccal mucosa, and tongue normal, and mucous membranes are moist Neck: supple, no adenopathy, no bruits Lymph: no palpable lymphadenopathy Heart: regular rate & rhythm, no murmur, and no gallops Lungs: chest symmetric with normal AP diameter, no chest deformities noted, no chest wall tenderness, lungs clear to auscultation Pulses: carotid=2/4 w/o bruits Abdomen: abdomen soft, non-tender, normal bowel sounds, and no masses or organomegaly Back: Low back tenderness. Limited ROM. Extremities: less than 2 second capillary refill, no joint deformities, effusion, or inflammation Neuro Exam: alert & oriented x 3 with fluent speech, no focal motor/sensory deficits, gait normal, reflexes normal and symmetric Skin: skin color, texture, turgor are normal, no rashes or significant lesions Labs reviewed and are significant for: Latest Reference Range & Units 07/22/22 08:47 04/12/23 11:17 Triglycerides <=174 mg/dL 173 Cholesterol <200 mg/dL 151 Non-HDL Cholesterol <=159 mg/dL 111 HDL Cholesterol >49 mg/dL 40 (L) LDL Cholesterol <=129 mg/dL 76 Sodium 135 - 146 mmol/L 141 139 Potassium 3.5 - 5.1 mmol/L 4.5 5.1 Chloride 98 - 107 mmol/L 106 107 CO2 22 - 32 mmol/L 25 23 BUN 6 - 20 mg/dL 18 14 Creatinine 0.5 - 1.0 mg/dL 0.9 0.9 Estimated Glomerular Filtration Rate >=60 mL/min 71 69 Anion Gap 7 - 15 mmol/L 10 9 Glucose 70 - 120 mg/dL 92 95 Calcium 8.4 - 10.2 mg/dL 9.6 9.9 Protein 6.0 - 8.3 g/dL 6.6 Surgical Risk Scoring Revised Cardiac Risk Index (RCRI) High-risk type of surgery (examples include vascular and any open intraperitoneal or intrathoracic procedures): 0=No History of ischemic heart disease (history of myocardial infarction or positive exercise test, current compliant of chest pain considered to be secondary to myocardia ischemia, use of nitrate therapy, or ECG with pathological Q waves; do not count prior coronary revascularization procedure unless one of the other criteria for ischemic heart disease is present): 0=No History of heart failure: 0=No History of cerebrovascular disease: 0=No Diabetes mellitus requiring treatment with insulin: 0=No Preoperative serum creatinine >2.0 mg/dL (177 micromol/L): 0=No Pt has revised cardiac index score of: No Risk Factors- 0.4% (95% CI: 0.1-0.8) Assessment and Plan (Z01.818) Preop examination (primary encounter diagnosis) Plan: Based on the patient's HPI and physical examination I feel that the patient is clinically optimizedfor the given procedure on [address] Mansfield. Functional Assessment They are able to walk up a flight of stairs, walk two blocks at a moderate pace, do heavy house work like vacuuming, and grocery shop. The patient's functional status is good (greater than 4 METS). 1 MET: 4 METs: 4-10 METs: Can take care of self, such as eat, dress or use the toilet. Can walk to block or go up a flight of steps. Can do heavy house work. Surgical Risk Assessment Patient is low medical risk for the listed procedure. Medication adjustments: none Additional consults or testing: None I spent a total of 20-29 minutes (exact time 20 mins) on the date of service in preparation, delivery, and documentation of the care provided to Aleshia Brandon excluding any time spent in the performance of separately billed services. ERIC Marcus documented in this encounter Nursing Notes * Oleg Bland LPN - 05/06/2023 9:57 AM EST Chief Complaint Patient presents with pre-op exam Pt is here for a pre-op exam for surgery on 05/[address] Mansfield for lower back surgery documented in this encounter Plan of Treatment Upcoming Encounters Date Type Department Care Team (Late st Contact Info) Description 07/04/2023 2:00 PM EST Office Visit [facility] [address] [place] [address] Krissy Lama PA-C [address] [place] [address] 09/30/2023 1:30 PM EDT Nurse Only Rheumatology, [address] [place] [phone] [place], Nurse Rheumatology [address] [address] 02/20/2024 1:00 PM EDT Appointment Radiology, [facility] [address] [phone] Scheduled Procedures Name Priority Associated Diagnoses Date/Ti me COLONOSCOPY FLEXIBLE PROXIMA L DIAGNOSTIC Recall Special screening for malignant neoplasms, colon Health Maintenance Due Date Last Done Comments Zoster Vaccines (2 of 3) 12/17/2014 10/22/2014 DTaP,Tdap,and Td Vaccines (2 - Td or Tdap) 12/02/2018 12/02/2008 COVID-19 Vaccine (4 - 2022- season) 2023 06/03/2021, 09/27/2020, 09/06/2020 Depression Screening 06/24/2023 06/24/2022, 10/19/19 15 DXA Scan 02/17/2024 02/16/2022, 11/11, 05/09/2017, Additional history exists GFR 04/12/2024 04/12/2023, 02/0 02/2023, 08/19/2021, Additional history exists Albumin/Creatinine Ratio 07/22/2025 023, 11/21/2019, 11/23/2018 Colonoscopy Discontinued 01/07/2012, 01/07/2012 Colorectal Cancer Screening Discontinued Pneumococcal Vaccine: 65+ Years Completed 10/28/2015, 04/10/2013 Influenza Vaccine (FLU shot) Completed 03/28/2023, 06/24/2022, 06/11/2021, Additional history exists VITAMIN D LEVEL ONCE IN A LIFETIME-USE SMARTSET# [id number] Completed 04/12/2023, 07/22/2022, 06/09/2021 Cologuard Discontinued Fecal Occult Blood Test Discontinued GARDASIL-HPV IMMUNIZATION SERIES Aged Out No longer eligible based on patient's age to complete this topic Hepatitis B Aged Out No longer eligi ble based on patient's age to complete this topic MENINGOCOCCAL (MENACTRA/MENVEO) Aged Out No longer eligible based on patient's age to complete this topic Sigmoidoscopy Discontinued documented as of this encounter Medical Devices Implanted Type Area Construction Project Engineer Device Identifier Shelf Expiration Date Model / Serial / Lot Cement Hv-R C01a - [id number] Implanted:Qty: 1 on 06/15/2021 by Larry Guerrero MD at OR [facility] N/A: Spine Thoracic [employer] : NEURO CARE 11/11/2023 C01A / / [id number] Description:Left: 3ml Right: 3ml documented as of this encounter Visit Diagnoses Diagnosis Preop examination- Primary Preoperative examination, unspecified documented in this encounter Advance Directives Latest Code Status on File Code Status Date Activated Date Inactivated Comments Full Code 06/15/2021 7:03 AM 06/15/2021 2:04 PM This or emiliano reflects the patients wishes and were consensually agreed upon. Care Teams Pharmacognosist Relationship Specialty Start Date End Date Krissy Lama PA-C [address] [place] [phone] PCP - General Physician Public Health Inspector 04/19/22 documented as of this encounter
--- OUTSIDE RECORDS SUMMARY | 2023-05-27 13:07 | External Medical Summary | Summary of Care ---
Author Name Unknown Organization [facility] Address [address] [facility] [address] Phone [phone] Care Team Providers Care Eligibility Counselor Name Role Phone Krissy Lama PA-C Primary Care Provider Reason for Visit * Reason Comments pre-op exam Pt is here for a pre -op exam for surgery on 05/[address] Mansfield for lower back surgery Encounter Details Date Type Department Care Team (Late st Contact Info) Description 05/06/2023 10:00 AM EST Office Visit [facility] [address] [place] [address] Jesus Jimenez CRNP [address] [place] [address] Preop examination* Allergies Active Allergy Reactions Criticality Noted Date Comments Aspirin 01/07/2012 hemetemesis Penicillin G Anaphylaxis,Hives High 01/07/2012 Shellfish Allergy Anaphylaxis,Hives High 01/07/2012 documented as of this encounter (statuses as of 05/06/2023) Medications Medication Sig Dispensed Refills Start Date [...] as of this encounter (statuses as of 05/06/2023) Active Problems Problem Noted Date Diagnosed Date DDD (degenerative disc disease), lumbar 11/13/19 22 Dyslipidemia, goal LDL below 100 11/11/2017 Senile osteoporosis 04/16/2014 History of cancer of left breast 04/16/2014 Essential hypertension with goal blood pressure less than 140/90 04/16/2014 documented as of this encounter (statuses as of 05/06/2023) Resolved Problems Problem Noted Date Diagnosed Date [...] as of this encounter (statuses as of 05/06/2023) Immunizations Name Administration Dates Next Due COVID-19 mRNA, LNP-s, No Pre serve, 2-Dose Series (Go Dish) 06/03/2021,09/27/2020,09/06/2020 Pneumococcal Conjugate Vacc, 13 Valent (Prevnar) [...] lumbar (11/12/2021) Chronic kidney disease, stage 3a ([facility]) (10/21/2020) Hypertensive kidney disease with stage 3a chronic kidney disease ([facility]) (04/21/2020) Hypertensive kidney disease with chronic kidney disease stage III ([facility]) (11/08/2019) Kidney disease, chronic, stage III (GFR 30-59 ml/min) ([facility]) (2018) Dyslipidemia, goal LDL below 100 (11/11/2017) [...] Description 07/04/2023 2:00 PM EST Office Visit [facility] [address] [place] [address] Krissy Lama PA-C [address] [place] [address] 09/30/2023 1:30 PM EDT Nurse Only Rheumatology, [address] [place] [phone] [place], Nurse Rheumatology [address] [address] 02/20/2024 1:00 PM EDT Appointment Radiology, [facility] [address] [phone] Scheduled Procedures Name Priority Associated Diagnoses Date/Ti [...] D LEVEL ONCE IN A LIFETIME-USE SMARTSET# [id number] Completed 04/12/2023, 07/22/2022, 06/09/2021 Cologuard Discontinued Fecal [...] this encounter Medical Devices Implanted Type Area Mock Up Builder Device Identifier Shelf Expiration Date Model / Serial / Lot Cement Hv-R C01a - [id number] Implanted:Qty: 1 on 06/15/2021 by Larry Guerrero MD at OR [facility] N/A: Spine Thoracic [employer] : NEURO CARE 11/11/2023 C01A / / [id number] Description:Left: 3ml Right: 3ml documented as of this encounter Visit Diagnoses Diagnosis Preop examination- Primary Preoperative examination, unspecified documented in this encounter Advance Directives Latest Code Status on File Code Status Date Activated Date Inactivated Comments Full Code 06/15/2021 7:03 AM 06/15/2021 2:04 PM This or emiliano reflects the patients wishes and were consensually agreed upon. Care Teams Eligibility Counselor Relationship Specialty Start Date End Date Krissy Lama PA-C [address] [place] [address] PCP - General Physician Property Management Assistant 04/19/22 documented as of this encounter
[2023-05-27] MEDS: CLINDAMYCIN/D5W 600 MG/50 ML BAG IV SCH ×2 (16:31→23:34)
[2023-05-27] MEDS: CALCIUM 600MG + VIT D 400 IU TAB PO SCH (19:53)
[2023-05-27] MEDS: DOCUSATE SODIUM/SENNA 50/8.6MG TAB PO SCH (19:53)
[2023-05-28] MEDS: LACTATED RINGER'S 1,000 ML IV SCH (04:39)
[2023-05-28] MEDS: POLYETHYLENE (MIRALAX) 17 GM PACK PO SCH ×4 (04:42→23:45)
[2023-05-28 07:07] LABS: Basophils # (auto) 0.01 K/uL (0.00-0.20); Basophils % (auto) 0.1 %; Hematocrit (blood only) 32.2 % (37.0-47.0); Hemoglobin 10.8 g/dl (12.0-16.0); Immature Granulocytes # (auto) 0.03 K/uL (0.01-0.20); Immature Granulocytes % (auto) 0.3 %; Lymphocytes # (auto) 1.59 K/uL (1.20-3.40); Lymphocytes % (auto) 14.9 %; Mean Corpuscular Hemoglobin 29.9 pg (25.0-34.0); Mean Corpuscular Hgb Conc 33.5 g/dL (32.0-36.0); Mean Corpuscular Volume 89.2 fL (80.0-100.0); Mean Platelet Volume 8.9 fL (9.4-12.4); Monocytes # (auto) 0.97 K/uL (0.11-0.59); Monocytes % (auto) 9.1 %; Neutrophils # (auto) 8.08 K/uL (1.40-6.50); Neutrophils % (auto) 75.6 %; Platelet Count 299 K/uL (130-400); RDW Coefficient of Variation 12.7 % (11.5-14.5); Red Blood Count 3.61 M/uL (4.20-5.40); White Blood Count 10.68 K/ul (4.8-10.8)
[2023-05-28 07:40] LABS: BUN Creatinine Ratio 15.4 (10-20); Calcium 9.3 mg/dl (8.6-10.3); Creatinine Clr Calc Pharmacy 44.7 ml/min; Est GFR (Non-African American) 61.3 ml/min; Potassium 4.5 mmol/L (3.5-5.1)
[2023-05-28] MEDS: dexAMETHasone 6 MG in SYRINGE 0 ML IV SCH (08:19)
[2023-05-28] MEDS: lisinopril 40 MG TAB PO SCH (08:19)
[2023-05-28] MEDS: CALCIUM 600MG + VIT D 400 IU TAB PO SCH ×2 (08:19→19:45)
[2023-05-28] MEDS: amLODIPine BESYLATE 5 MG TAB PO SCH (08:19)
[2023-05-28] MEDS: ATORVASTATIN 10 MG TAB PO SCH (08:19)
--- NOTE | 2023-05-28 10:34 | Orthopedic Progress Note ---
Date of Service May 28, 2023 Assessment & Plan (1) Neurogenic claudication due to lumbar spinal stenosis: Plan: This time initiate physical therapy monitor CLAUDIO output hopefully discharge home Tuesday or Tuesday. Admission and Anticipated Discharge Date Admission Date: May 27, 2023 Subjective Back pain is controlled leg pain markedly improved Physical Exam Physical Exam: Patient is in the chair at the bedside. Has good strength testing. Appears comfortable. Results & Data Vital Signs (Past 12 Hours) Vital Signs Temp Pulse Resp BP Pulse Ox O2 Del Method 05/28/23 08:09 Room Air 05/28/23 08:01 36.7 C 61 16 134/77 98 Room Air 05/28/23 03:00 36.7 C 69 16 166/70 H 93 Room Air 05/27/23 23:41 36.5 C 82 16 131/77 93 Room Air
--- NOTE | 2023-05-28 13:54 | Hospitalist Progress Note ---
Date of Service May 28, 2023 Assessment & Plan (1) Status post lumbar surgery: (2) Neurogenic claudication due to lumbar spinal stenosis: (3) Hypertension: (4) Hyperlipidemia: (5) Osteoporosis: Plan Patient is 78-year-old female with PMHx significant for HTN, dyslipidemia, DDD, osteoporosis who is s/p L2-L4 decompression and fusion on 05/27/23. Status post lumbar surgery Neurogenic claudication due to lumbar spinal stenosis Post op day# 1 s/p L2-L4 decompression fusion by ortho/spine EBL # 50 mL -pain management per ortho -wound management per ortho -PT/OT as appropriate -DVT prophylaxis per ortho -incentive spirometry -monitor H&H for acute blood loss anemia, pre-op Hgb: 12, currently 10.8 Hypertension Stable Suspect acute elevations in the setting of pain Continue amlodipine, lisinopril Hyperlipidemia Continue atorvastatin Osteoporosis Receives Prolia, last was 03/2023 Continue caltrate plus DVT Prophylaxis: SCDs/TEDS Diet: regular CODE STATUS: Full Code Thank you for this consultation. We will follow the patient with you during their hospital stay. You can reach a member of the [facility] Hospitalist Team 03/01 via the hospitalist role on tiger text. Admission and Anticipated Discharge Date Admission Date: May 27, 2023 Subjective pt seen in the AM. Stated that she had no acute concerns. Had not yet had a BM or moving gas. Was tolerating food. Review of Systems Review of Systems: All systems reviewed & are unremarkable except as noted in Subjective Physical Exam Physical Exam: General: Alert, oriented. No acute distress Skin: No noted rashes or bruises Psych: Appropriate mood and affect Neuro: difficult and painful movements HEENT: NC/AT CV: RRR Resp: Breath sounds clear bilaterally, no increased effort of breathing. Abdomen: Soft, nontender Extremities: No edema in lower extremities bilaterally. Results & Data Results & Data Vital Signs (Past 12 Hours) Vital Signs Temp Pulse Resp BP Pulse Ox O2 Del Method 05/28/23 11:09 37.0 C 64 16 146/81 H 94 Room Air 05/28/23 08:09 Room Air 05/28/23 08:01 36.7 C 61 16 134/77 98 Room Air 05/28/23 03:00 36.7 C 69 16 166/70 H 93 Room Air
[2023-05-28] MEDS: DOCUSATE SODIUM/SENNA 50/8.6MG TAB PO SCH (19:45)
[2023-05-29] MEDS: POLYETHYLENE (MIRALAX) 17 GM PACK PO SCH (06:10)
[2023-05-29 06:58] LABS: Basophils # (auto) 0.03 K/uL (0.00-0.20); Basophils % (auto) 0.2 %; Hematocrit (blood only) 34.5 % (37.0-47.0); Hemoglobin 11.6 g/dl (12.0-16.0); Immature Granulocytes # (auto) 0.07 K/uL (0.01-0.20); Immature Granulocytes % (auto) 0.5 %; Lymphocytes # (auto) 2.11 K/uL (1.20-3.40); Lymphocytes % (auto) 16.2 %; Mean Corpuscular Hemoglobin 29.8 pg (25.0-34.0); Mean Corpuscular Hgb Conc 33.6 g/dL (32.0-36.0); Mean Corpuscular Volume 88.7 fL (80.0-100.0); Mean Platelet Volume 9.3 fL (9.4-12.4); Monocytes # (auto) 1.22 K/uL (0.11-0.59); Monocytes % (auto) 9.4 %; Neutrophils % (auto) 73.7 %; Platelet Count 341 K/uL (130-400); RDW Coefficient of Variation 12.9 % (11.5-14.5); RDW Standard Deviation 42.1 fL (36.4-46.3); Red Blood Count 3.89 M/uL (4.20-5.40); White Blood Count 13.03 K/ul (4.8-10.8)
[2023-05-29 07:27] LABS: BUN Creatinine Ratio 26.8 (10-20); Calcium 10.1 mg/dl (8.6-10.3); Creatinine Clr Calc Pharmacy 49.6 ml/min; Est GFR (African American) 80.6 ml/min; Est GFR (Non-African American) 69.5 ml/min; Potassium 4.2 mmol/L (3.5-5.1)
[2023-05-29] MEDS: dexAMETHasone 6 MG in SYRINGE 0 ML IV SCH (07:58)
[2023-05-29] MEDS: ATORVASTATIN 10 MG TAB PO SCH (07:59)
[2023-05-29] MEDS: CALCIUM 600MG + VIT D 400 IU TAB PO SCH (07:59)
[2023-05-29] MEDS: amLODIPine BESYLATE 5 MG TAB PO SCH (07:59)
[2023-05-29] MEDS: lisinopril 40 MG TAB PO SCH (07:59)
--- NOTE | 2023-05-29 08:08 | Discharge Summary ---
Date of Service May 29, 2023 Admission HPI Per Admitting Provider This is a 78-year-old female who presents with chronic persistent back and leg pain after failing course of nonoperative care is here for surgical invention. Discharge Data Consultations 05/27/23 11:09 Consult Hospitalist Routine Procedures Performed Operation Date: 05/27/23 07:45 Actual Procedures p L2-L5 Decompression and Fusion, Spinal Cord Monitoring(Not Applicable) - Sujit Mansfield, Hospital Course (1) Neurogenic claudication due to lumbar spinal stenosis: Patient is a pleasant 78-year-old female who had undergone a lumbar decompression and fusion from L2-L4 on 05/27/[address] Mansfield under general anesthesia. She left the operating room with a CLAUDIO drain Carey in place and was transferred to PACU in stable condition. She was seen by physical therapy postoperative day #1 for ambulation and gait training. Throughout her hospital course her calves remained supple and nontender her dressing remained clean dry and intact. On postoperative day #2 the patient has met discharge criteria and is safe for home discharge. Her discharge instructions were to avoid any full bending at the waist. She was to change her dressing once daily until there is no drainage once there is no drainage she may start showering. She now left anything heavier than 5 to 7 [address] She should not drive until she is seen in the office in approximately 2 weeks. She has an appointment scheduled for 2 weeks postoperatively she was to call and be seen sooner if she develops any increased pain, drainage from the incision, or increased pain going down her legs.
--- NOTE | 2023-05-29 16:15 | Hospitalist Progress Note ---
Date of Service May 29, 2023 Assessment & Plan (1) Status post lumbar surgery: (2) Neurogenic claudication due to lumbar spinal stenosis: (3) Hypertension: (4) Hyperlipidemia: (5) Osteoporosis: Plan Patient is 78-year-old female with PMHx significant for HTN, dyslipidemia, DDD, osteoporosis who is s/p L2-L4 decompression and fusion on 05/27/23. Status post lumbar surgery Neurogenic claudication due to lumbar spinal stenosis Post op day# 2 s/p L2-L4 decompression fusion by ortho/spine EBL # 50 mL -pain management per ortho -wound management per ortho -PT/OT as appropriate -DVT prophylaxis per ortho -incentive spirometry -monitor H&H for acute blood loss anemia, pre-op Hgb: 12, currently 11.6 on discharge Leukocytosis WBC increased Likely due to steroid use Monitor to ensure resolution Hypertension Stable Suspect acute elevations in the setting of pain Continue amlodipine, lisinopril Hyperlipidemia Continue atorvastatin Osteoporosis Receives Prolia, last was 03/2023 Continue caltrate plus DVT Prophylaxis: SCDs/TEDS Diet: regular CODE STATUS: Full Code Thank you for this consultation. We will follow the patient with you during their hospital stay. You can reach a member of the [facility] Hospitalist Team 03/01 via the hospitalist role on tiger text. Admission and Anticipated Discharge Date Admission Date: May 27, 2023 Subjective pt seen in the AM. Stated that she had no acute concerns. Had a BM. Was tolerating food. Review of Systems Review of Systems: All systems reviewed & are unremarkable except as noted in Subjective Physical Exam Physical Exam: General: Alert, oriented. No acute distress Skin: No noted rashes or bruises Psych: Appropriate mood and affect Neuro: sitting at bedside HEENT: NC/AT CV: RRR Resp: Breath sounds clear bilaterally, no increased effort of breathing. Abdomen: Soft, nontender Extremities: No edema in lower extremities bilaterally. Results & Data Results & Data Vital Signs (Past 12 Hours) Vital Signs Temp Pulse Resp BP Pulse Ox O2 Del Method 05/29/23 07:53 36.6 C 66 16 145/75 H 94 Room Air
== END 2023-05-29 10:50 | disposition home or self-care (01) | DRG 455 ==
LOC: ASU 06:08 → 3E 09:55